=== PATIENT | male | born 1975 | race Hispanic/Latino ===

== ENCOUNTER 2021-02-24 15:08 | Outpatient (CLI) | payer BC | END 2021-02-24 15:09 | disposition home or self-care (01) | LOC: BICRAD 15:08 | PROVIDERS: ATTEND Family Medicine | DX: J18.9 Pneumonia, unspecified organism (principal) | CPT/HCPCS: 71046 ==

== ENCOUNTER 2021-11-03 10:07 | Outpatient (CLI) | payer BC | END 2021-11-03 10:08 | disposition home or self-care (01) | LOC: BICRAD 10:07 | PROVIDERS: ATTEND Family Medicine | DX: J20.9 Acute bronchitis, unspecified (principal) | CPT/HCPCS: 71046 ==

== ENCOUNTER 2023-01-24 11:10 | Outpatient (CLI) | payer BC | END 2023-01-24 11:11 | disposition home or self-care (01) | LOC: RAD 11:10 | PROVIDERS: ATTEND Internal Medicine Critical Care Medicine | DX: R06.00 Dyspnea, unspecified (principal) | CPT/HCPCS: 71046 ==